=== PATIENT | female | born 1960 | race Caucasian/White ===

== ENCOUNTER 2018-08-27 22:42 | Emergency (ER) | payer OTHER ==
--- NOTE | 2018-08-27 23:28 | C.PDOC ---
Time Seen by Provider: 08/27/18 23:27 Chief Complaint (Nursing): ENT Problem Past Medical History Vital Signs: Last Vital Signs Temp 98.5 F 08/27/18 22:53 Pulse 93 H 08/27/18 22:53 Resp 20 08/27/18 22:53 BP 150/78 08/27/18 22:53 Pulse Ox 95 08/27/18 22:53 - Medical History PMH: HTN, Sleep Apnea - Social History Hx Alcohol Use: No Hx Substance Use: No - Immunization History Hx Tetanus Toxoid Vaccination: No Hx Influenza Vaccination: No Hx Pneumococcal Vaccination: No ED Course And Treatment O2 Sat by Pulse Oximetry: 95 Disposition Counseled Patient/Family Regarding: Studies Performed, Diagnosis - Disposition Disposition Time: 23:28
--- NOTE | 2018-08-28 00:06 | C.PDOC ---
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 Patient is accompanied by her son and . She does not speak [place]ian and son is translating as per patient's preference. Ice pack was given and pressure was applied. She denies any digital trauma to the nose but admits to sneezing four times without provocation and headache. She denies seasonal allergies. She is not on any anticoagulants. She admits to previous episode 2 to 3 years ago that stopped after a few minutes as per son. She is not actively bleeding at this time. Time Seen by Provider: 08/27/18 23:27 Chief Complaint (Nursing): ENT Problem Anticoagulant/Antiplatlet Use?: No Recent Aspirin Use: No Past Medical History Reviewed: Historical Data, Nursing Documentation, Vital Signs Vital Signs: Last Vital Signs Temp 98.5 F 08/27/18 22:53 Pulse 93 H 08/27/18 22:53 Resp 20 08/27/18 22:53 BP 150/78 08/27/18 22:53 Pulse Ox 95 08/27/18 22:53 - Medical History Other PMH: TB Family History: States: Unknown Family Hx - Social History Hx Alcohol Use: No Hx Substance Use: No - Immunization History Hx Tetanus Toxoid Vaccination: No Hx Influenza Vaccination: No Hx Pneumococcal Vaccination: No Review Of Systems Except As Marked, All Systems Reviewed And Found Negative. ENT: Positive for: Other (nasal bleeding) Neurological: Positive for: Headache Physical Exam - Physical Exam Appears: Well, Non-toxic, No Acute Distress Skin: Normal Color, Warm, Dry Head: Atraumatic, Normacephalic Eye(s): bilateral: Normal Inspection Ear(s): Bilateral: Normal Nose: Epistaxis, Other (mild turbinate hypertrophy bilaterally) Throat: Other (blood clot noted in pharynx and expelled by patient ) Neck: Normal, Supple Cardiovascular: Rhythm Regular Respiratory: Normal Breath Sounds ED Course And Treatment O2 Sat by Pulse Oximetry: 95 Progress Note: Left Epistaxis s/p recurrent sneezing. - improved; no active bleeding. - recommend otc Afrin 1 spray in each nostril tonight and tomorrow morning. - counseled patient on prevention. - follow up with ENT for further evaluation if warranted. - patient and son verbalized understanding Disposition Counseled Patient/Family Regarding: Diagnosis, Need For Followup - Disposition Referrals: Tolu Rincon MD [Staff Provider] - Disposition: HOME/ ROUTINE Disposition Time: 00:04 Condition: IMPROVED Additional Instructions: LEILA CONNELLY, thank you for letting us take care of you today. Your provider was Melisa Ferreira MD and you were treated for NOSEBLEED. The emergency medical care you received today was directed at your acute symptoms. If you were prescribed any medication, please fill it and take as directed. It may take several days for your symptoms to resolve. Return to the Emergency Department if your symptoms worsen, do not improve, or if you have any other problems. Please contact your doctor or call one of the physicians/clinics you have been referred to that are listed on the Patient Visit Information form that is included in your discharge packet. Bring any paperwork you were given at discharge with you along with any medications you are taking to your follow up visit. Our treatment cannot replace ongoing medical care by a primary care provider outside of the emergency department. Thank you for allowing the [facility] team to be part of your care today. 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
[2018-08-28 00:27] VITALS: BP 145/76; PULSE 90; RESP 18; TEMP 98.4
[2018-08-28 00:29] VITALS: O2SAT 95
== END 2018-08-28 00:27 | disposition home or self-care (01) ==
LOC: C.ER 22:42
DX: R04.0 Epistaxis (principal)